=== PATIENT | female | born 1945 | race Caucasian/White ===

== ENCOUNTER 2024-06-04 15:20 | Outpatient (REF) | payer MEDICARE, SELFPAY | END 2024-06-04 15:21 | disposition home or self-care (01) | LOC: LBN 15:20 | PROVIDERS: Visit Provider Obstetrics & Gynecology | DX: N39.41 Urge incontinence (principal); Z01.419 Encounter for gynecological examination (general) (routine) without abnormal findings | CPT/HCPCS: 87086 ==

== ENCOUNTER 2024-06-24 02:15 | Outpatient (CLI) | payer MEDICARE, SELFPAY ==
--- NOTE | 2024-06-24 07:30 | DI.US_ITS ---
Exam(s) US PELVIS RENAL EXAM: US PELVIS RENAL CLINICAL HISTORY: Urinary incontienence,H/O SHELLIE,VAGINAL PROLAPSE,R32,N81.10. TECHNIQUE: Ultrasound renal, pelvic, both abdmonal and tranvaginal was performed using standard prot ocol. COMPARISON: No exams were available for comparison FINDINGS: RENAL: Renal size in cm: Right: 9.7. Left: At least 11 cm Echogenicity: Normal. Hydronephrosis: No. Cyst or mass: There are numerous bilateral renal cysts present. The largest on the right measures 1. 8 x 1.5 x 1.6 cm. The largest on the left is inferiorly located and measures 12.2 x 9.9 x 10.5 cm. No suspicious cystic masses are seen. No follow-up is recommended. Nephrolithiasis: No. Other findings: None. Bladder:Normal. Ureteral jets: Right: Visualized and unremarkable. Left: Visualized and unremarkable. Prevoid vol:536 cc Postvoid vol:241 cc Color: Symmetric and uniform flow to both kidneys. PELVIC: UTERUS: The patient is status post hysterectomy. OVARIES: The ovaries were not visualized on this examination. No suspicious adnexal masses are seen. CUL-DE-SAC: Free fluid: None. IMPRESSION: 1. Polycystic kidneys. 2. Status post hysterectomy. The ovaries were not visualized on this examination. 3. Large postvoid urinary bladder volume. DATA REPOSITORY:
== END 2024-06-24 02:35 ==
PROVIDERS: Visit Provider Obstetrics & Gynecology
DX: R32 Unspecified urinary incontinence (principal); N81.10 Cystocele, unspecified; Q61.02 Congenital multiple renal cysts
CPT/HCPCS: 76770; 76856

== ENCOUNTER 2024-07-04 01:33 | Outpatient (CLI) | payer MEDICARE, SELFPAY ==
--- NOTE | 2024-07-04 12:58 | DI.MAMMO_ITS ---
Exam(s) MAMMO SCREENING EXAM: MAMMO SCREENING CLINICAL HISTORY: screening,z12.39 TECHNIQUE: Bilateral full field digital CC and MLO mammographic images were obtained with 3D tomosyn thesis and utilizing computer aided detection (CAD). COMPARISON: Available for comparison. FINDINGS: Masses/Architectural Distortion: There is increased density in the supra-areolar region of the left b reast on the MLO view. No architectural distortion or discrete mass is seen in this area. However, this area should be further evaluated with a spot compression view. Microcalcifications: No suspicious pleomorphic-type are seen. Skin Thickening/Nipple Retraction: None. IMPRESSION: 1. Increased density in the supra-areolar region of the left breast on the MLO view. 2. Spot compression views requested for further evaluation. Ultrasound may be indicated at that time . BI-RADS Category 0 - Incomplete: Need additional imaging evaluation Breast Density - Category C - The breast are heterogeneously dense, which may obscure small masses. Breast density category C or D implies that the patient has dense breast tissue. Dense breast tissue is very common and is not abnormal but dense breast tissue can make it harder to find cancer on a ma mmogram. Also, dense breast tissue may increase their breast cancer risk. This information about the result of the mammogram report was provided to the patient to raise their awareness. Use this report when you speak with the patient about their risks for breast cancer, which includes their family hist ory. At that time, you may recommend for more screening tests (Ultrasound or MRI) as they might be us eful based on their risk. A negative radiographic report should not delay biopsy if a dominant or clinically suspicious mass is present. Up to ten percent of cancers are not identified on mammography. A negative report may reinforce clinical impression. Adenosis and dense breasts may obscure an underlying neoplasm. False positive reports average 6 to 10%. Patient will receive a letter notifying them of these results.
== END 2024-07-04 01:53 ==
PROVIDERS: PCP Family Medicine; Visit Provider Obstetrics & Gynecology
DX: Z12.31 Encounter for screening mammogram for malignant neoplasm of breast (principal); R92.333 Mammographic heterogeneous density, bilateral breasts
CPT/HCPCS: 77063; 77067

== ENCOUNTER 2024-07-31 02:42 | Outpatient (CLI) | payer MEDICARE, SELFPAY ==
--- NOTE | 2024-07-31 | DI.US_ITS ---
Exam(s) MG MAMMO SCREEN CALL BACK UNI US BREAST LT COMPLETE EXAM: MG MAMMO SCREEN CALL BACK UNI-LEFT AND COMPLETE LEFT BREAST ULTRASOUND CLINICAL HISTORY: F/U MAMMO, INC DENSITY SUPRAAREOLAR REGION LT BREAST. TECHNIQUE: Unilateral LEFT BREAST spot mammographic images obtained with 3D tomosynthesisand [place] [address] computer aided detection (CAD). . Complete LEFT breast Ultrasound was also performed, including all 4 quadrants, the retroareolar regio n, and the ipsilateral axilla. COMPARISON: Prior mammograms were reviewed. This additional imaging was performed due to findings described on the recent screening mammogram of 07/04/2024. FINDINGS: DIAGNOSTIC MAMMOGRAM: Additional mammographic views performed todayrender this area somewhat less concerning and similar ap pearance to prior mammograms. COMPLETE LEFT BREAST ULTRASOUND: Ultrasound performed today reveals multiple minimally prominent retroareolar region ducts which corre spond to the finding on the mammogram. There is a benign 2-3 mm shadowing macro calcification which corresponds to a macro calcification in this region on the mammogram.. No other ultrasound findings in all 4 quadrants Scanning of the ipsilateral axilla reveals no significant adenopathy. IMPRESSION: 1. No radiographic evidence of malignancy. 2. No solid lesions seen on complete left breast ultrasound Appropriate follow-up is to keep this patient on her yearly mammogram schedule, with earlier imaging if a self detected breast change is noted. The patient was informed of these findings and recommendations myself prior to leaving the department today. BI-RADS Category 2 - Benign Findings Breast Density - Category C - The breast are heterogeneously dense, which may obscure small masses. Breast density Category C or D implies that the patient has dense breast tissue. Dense breast tissue can make it harder to find cancer on a mammogram. Dense breast tissue is also associated with an incr eased risk of breast cancer. This information about the result of the mammogram report was provided to the patient to raise their awareness. Use this report when you speak with the patient about their risks for breast cancer, which includes their family history. At that time, you may recommend additional screening tests (Ultrasoun d or MRI) as these tests may add significant information. A negative radiographic report should not delay biopsy if a dominant or clinically suspicious mass is present. Up to ten percent of cancers are not identified on mammography. A negative report may reinforce clinical impression. Adenosis and dense breasts may obscure an underlying neoplasm. False positive reports average 6 to 10%. Patient will receive a letter notifying them of these results.
== END 2024-07-31 03:02 ==
LOC: DI 02:42
PROVIDERS: PCP Family Medicine; Visit Provider Obstetrics & Gynecology
DX: Z12.31 Encounter for screening mammogram for malignant neoplasm of breast (principal); R92.8 Other abnormal and inconclusive findings on diagnostic imaging of breast
CPT/HCPCS: 76642; 77063; 77067